=== PATIENT | male | born 1960 | race African-American/Black ===

== ENCOUNTER 2019-11-21 12:27 | Emergency (ER) | payer OTHER, MEDICAID ==
[~2019-11-21] VITALS: Ht 185.4 cm; Wt 91.0 kg
[~2019-11-21 12:27] MED LIST: BENADRYL; IBUPROFEN
[2019-11-21 12:30] VITALS: BP 120/76
[2019-11-21] MEDS ORDERED: ACETAMINOPHEN 325MG TABLET PO ONE (13:00)
== END 2019-11-21 15:00 | disposition home or self-care (01) ==
LOC: ER 12:27
DX: S80.211A Abrasion, right knee, initial encounter (principal); S90.512A Abrasion, left ankle, initial encounter; M79.642 Pain in left hand; M79.641 Pain in right hand; M32.9 Systemic lupus erythematosus, unspecified; V18.0XXA Pedal cycle driver injured in noncollision transport accident in nontraffic accident, initial encounter; Y93.89 Activity, other specified; Y92.89 Other specified places as the place of occurrence of the external cause
CPT/HCPCS: 73130; 99283

== ENCOUNTER 2020-09-11 18:43 | Emergency (ER) | payer OTHER, MEDICAID ==
[~2020-09-11] VITALS: Ht 175.3 cm; Wt 82.0 kg
[2020-09-11 18:45] VITALS: BP 124/79
[2020-09-11] MEDS ORDERED: LIDOCAINE HCL 1% 20ML VIAL (Pyxis) INJ INFIL ONE (19:00)
[2020-09-11] MEDS ORDERED: TETANUS, DIPHTHERIA, PERTUSSIS VAC/PF 0.5ML (>7YR OLD) IM ONE (19:00)
== END 2020-09-11 20:20 | disposition home or self-care (01) ==
LOC: ER 18:43
DX: S61.210A Laceration without foreign body of right index finger without damage to nail, initial encounter (principal); M32.9 Systemic lupus erythematosus, unspecified; F12.10 Cannabis abuse, uncomplicated; F17.210 Nicotine dependence, cigarettes, uncomplicated; W31.1XXA Contact with metalworking machines, initial encounter; Y93.89 Activity, other specified; Y92.018 Other place in single-family (private) house as the place of occurrence of the external cause
CPT/HCPCS: 12001; 73130; 90471; 90715; 99283; J3490

== ENCOUNTER 2021-05-28 01:20 | Emergency (ER) | payer OTHER, MEDICAID ==
[~2021-05-28] VITALS: Ht 175.3 cm; Wt 95.0 kg
[2021-05-28] MEDS ORDERED: SULF1TAB48 PO ×2 (06:00)
[2021-05-28] MEDS ORDERED: NAPR-681 PO (06:00)
[2021-05-28] MEDS ORDERED: CEPH500C2 PO (06:06)
[2021-05-28 06:14] VITALS: BP 132/76
== END 2021-05-28 06:17 | disposition home or self-care (01) ==
LOC: ER 01:20
DX: S80.812A Abrasion, left lower leg, initial encounter (principal); L03.116 Cellulitis of left lower limb; R60.9 Edema, unspecified; M32.9 Systemic lupus erythematosus, unspecified; F12.10 Cannabis abuse, uncomplicated; Z98.890 Other specified postprocedural states; X58.XXXA Exposure to other specified factors, initial encounter; Y93.89 Activity, other specified; Y92.018 Other place in single-family (private) house as the place of occurrence of the external cause
CPT/HCPCS: 93970; 99284

== ENCOUNTER 2021-09-03 07:45 | Emergency (ER) | payer OTHER, MEDICAID ==
[~2021-09-03] VITALS: Ht 182.9 cm; Wt 91.0 kg
[~2021-09-03 07:45] MED LIST changes: +CEPH500C2 PO; +NAPR-681 PO
[2021-09-03 07:52] VITALS: BP 132/77
[2021-09-03] MEDS ORDERED: ASPI-1497 MT (18:48)
== END 2021-09-03 08:21 | disposition home or self-care (01) ==
LOC: ER 08:08
DX: U07.1 COVID-19 (principal); F12.10 Cannabis abuse, uncomplicated; Z13.9 Encounter for screening, unspecified; Z98.890 Other specified postprocedural states
CPT/HCPCS: 99283

== ENCOUNTER 2021-09-03 14:14 | Emergency (ER) | payer OTHER, MEDICAID ==
[~2021-09-03] VITALS: Ht 170.2 cm; Wt 73.0 kg
[2021-09-03] MEDS ORDERED: IBUPROFEN 600MG TABLET PO ONE (14:45)
[2021-09-03 15:49] LABS: HEMATOCRIT. 33.8 % (42.0-52.0); HEMOGLOBIN. 11.1 g/dL (14.0-18.0); MEAN CORPUSCULAR HEMOGLOBIN 28.8 pg (28.0-32.0); MEAN CORPUSCULAR VOLUME 87.6 fL (80.0-94.0); RED BLOOD CELL COUNT 3.86 mill/uL (4.7-6.1); RED CELL DISTRIBUTION WIDTH 13.5 % (11.6-14.6)
[2021-09-03 15:59] LABS: CHLORIDE 103 mEq/L (98-107)
[2021-09-03 16:08] LABS: ETHANOL BLOOD < 10 mg/dL
[2021-09-03 16:20] LABS: CLARITY URINE CLEAR (CLEAR); COLOR URINE YELLOW (YELLOW); KETONES URINE TRACE (NEGATIVE); LEUKOCYTE ESTERASE URINE NEGATIVE (NEGATIVE); NITRITE URINE NEGATIVE (NEGATIVE); OCCULT BLOOD URINE NEGATIVE (NEGATIVE); PH URINE 5.5 (4.5-8.0); PROTEIN URINE TRACE (NEGATIVE); SPECIFIC GRAVITY URINE 1.025 (1.005-1.030)
[2021-09-03 16:29] LABS: MEAN PLATELET VOLUME 7.1 fl (7.4-10.4); PLATELET 291 x1000/uL (130-400)
[2021-09-03 16:31] LABS: PLATELET ESTIMATE NORMAL
[2021-09-03 16:38] LABS: *AMPHETAMINES SCREEN URINE PRESUMTIVE POSITIVE (NEGATIVE); *BARBITURATES SCREEN URINE NEGATIVE (NEGATIVE); *BENZODIAZEPINES SCREEN URINE NEGATIVE (NEGATIVE); *COCAINE SCREEN URINE NEGATIVE (NEGATIVE); CANNABINOID URINE SCREEN PRESUMTIVE POSITIVE (NEGATIVE); METHADONE URINE SCREEN NEGATIVE (NEGATIVE); OPIATES URINE SCREEN NEGATIVE (NEGATIVE); PHENCYCLIDINE URINE SCREEN PRESUMTIVE POSITIVE (NEGATIVE)
[2021-09-03] MEDS ORDERED: ASPI-1497 MT (18:48)
[2021-09-03] MEDS ORDERED: ASPIRIN 325MG EC TABLET PO ONE (19:00)
[2021-09-03 19:28] VITALS: BP 128/78
== END 2021-09-03 19:27 | disposition home or self-care (01) ==
LOC: ER 14:26
DX: R07.89 Other chest pain (principal); R94.31 Abnormal electrocardiogram [ECG] [EKG]; F12.10 Cannabis abuse, uncomplicated; F15.10 Other stimulant abuse, uncomplicated; F11.10 Opioid abuse, uncomplicated; M32.9 Systemic lupus erythematosus, unspecified
CPT/HCPCS: 36415; 71045; 80053; 80305; 80320; 81003; 84484; 85025; 93005; 99285; G0480

== ENCOUNTER 2021-10-23 11:11 | Emergency (ER) | payer OTHER, MEDICAID ==
[~2021-10-23] VITALS: Ht 175.3 cm; Wt 91.0 kg
[~2021-10-23 11:11] MED LIST changes: +ASPI-1497 MT
[2021-10-23] MEDS ORDERED: TRAMADOL HCL/ACETAMINOPHEN 37.5/325MG TABLET PO NR (15:00)
[2021-10-23 15:27] VITALS: BP 127/64
[2021-10-23] MEDS ORDERED: TRAM-529 MT (16:32)
[2021-10-23] MEDS ORDERED: FURO20TA4 MT (16:32)
[2021-10-23] MEDS ORDERED: POTA-205 MT (16:32)
== END 2021-10-23 16:37 | disposition home or self-care (01) ==
LOC: ER 11:11
DX: R60.0 Localized edema (principal); Z79.899 Other long term (current) drug therapy; M79.89 Other specified soft tissue disorders
CPT/HCPCS: 99283

== ENCOUNTER 2021-12-06 23:51 | Emergency (ER) | payer OTHER ==
[~2021-12-06] VITALS: Ht 175.3 cm; Wt 104.7 kg
[~2021-12-06 23:51] MED LIST changes: +FURO20TA4 MT; +POTA-205 MT; +TRAM-529 MT
[2021-12-07 00:05] VITALS: BP 128/80
== END 2021-12-07 03:29 | disposition left against medical advice (07) ==
LOC: ER 12-07 00:05
DX: Z53.21 Procedure and treatment not carried out due to patient leaving prior to being seen by health care provider (principal)

== ENCOUNTER 2021-12-24 22:28 | Emergency (ER) | payer OTHER, MEDICAID ==
[~2021-12-24] VITALS: Ht 175.3 cm; Wt 105.0 kg
[2021-12-25] MEDS ORDERED: ACETAMINOPHEN 325MG TABLET PO ONE (01:15)
[2021-12-25] MEDS ORDERED: BACITRACIN ZINC OINT UDPKT TOP ONE (02:00)
[2021-12-25] MEDS ORDERED: ACET-3163 PO (02:39)
[2021-12-25 03:05] VITALS: BP 150/85
== END 2021-12-25 03:12 | disposition home or self-care (01) ==
LOC: ER 22:28
DX: S80.01XA Contusion of right knee, initial encounter (principal); Z79.899 Other long term (current) drug therapy; Z79.82 Long term (current) use of aspirin; V19.9XXA Pedal cyclist (driver) (passenger) injured in unspecified traffic accident, initial encounter; Y93.89 Activity, other specified; Y92.89 Other specified places as the place of occurrence of the external cause; Y99.8 Other external cause status
CPT/HCPCS: 73080; 73562; 99284

== ENCOUNTER 2022-11-30 12:04 | Emergency (ER) | payer MEDICARE, MEDICAID ==
[~2022-11-30] VITALS: Ht 182.9 cm; Wt 100.0 kg
[~2022-11-30 12:04] MED LIST changes: +ACET-3163 PO
[2022-11-30 12:08] VITALS: O2SAT 99
[2022-11-30] MEDS ORDERED: LORAZEPAM 2MG/ML CPJ IM STA (12:22)
[2022-11-30] MEDS ORDERED: DIPHENHYDRAMINE 50MG/ML VIAL IM STA (12:22)
[2022-11-30] MEDS ORDERED: HALOPERIDOL LACTATE 5MG/ML VIAL IM STA (12:22)
[2022-11-30] MEDS ORDERED: SODIUM CHLORIDE 0.9% 1,000 ML IV ONE (12:30)
[2022-11-30 13:17] LABS: BASOPHILS % 0.6 % (0.0-2.0); EOSINOPHILS % 0.8 % (0.0-5.0); HEMATOCRIT. 37.2 % (42.0-52.0); HEMOGLOBIN. 12.4 g/dL (14.0-18.0); LYMPHOCYTES % 30.2 % (20.0-50.0); MEAN CORPUSCULAR HEMOGLOBIN 29.3 pg (28.0-32.0); MEAN CORPUSCULAR HGB CONC 33.3 g/dL (31.0-37.0); MEAN CORPUSCULAR VOLUME 88.2 fL (80.0-94.0); MEAN PLATELET VOLUME 6.8 fl (7.4-10.4); MONOCYTES % 9.4 % (2.0-8.0); PLATELET 274 x1000/uL (130-400); RED BLOOD CELL COUNT 4.22 mill/uL (4.7-6.1); RED CELL DISTRIBUTION WIDTH 15.5 % (11.6-14.6); WHITE BLOOD COUNT 5.2 x1000/uL (4.5-11.0)
[2022-11-30 14:30] LABS: CHLORIDE 110 mEq/L (98-107); INDEX HEMOLYSI 1 (1-3); INDEX ICTERIC 1 (1-4); INDEX LIPEMIC 1 (1-3); POTASSIUM 3.8 mEq/L (3.5-5.1); SODIUM 139 mEq/L (136-145)
[2022-11-30 14:43] LABS: ACETAMINOPHEN <2 ug/mL ug/mL (10-30); ALANINE AMINOTRANSFERASE 27 IU/L (13-61); ALBUMIN 3.4 g/dL (3.4-5.0); ASPARTATE AMINOTRANSFERASE 13 IU/L (15-37); BILIRUBIN TOTAL 0.2 mg/dL (0.1-1.0); CARBON DIOXIDE 29 mEq/L (21-32); CREATININE 1.2 mg/dL (0.6-1.3); ETHANOL BLOOD < 10 mg/dL (<10); GLUCOSE 134 mg/dL (70-105); UREA NITROGEN BLOOD 11 mg/dL (7-21)
[2022-11-30 15:41] LABS: CREATINE KINASE 62 IU/L (39-308)
[2022-11-30 16:18] LABS: TROPONIN I HIGH SENSITIVITY 13 ng/L (<78)
[2022-11-30 16:37] LABS: *AMPHETAMINES SCREEN URINE NEGATIVE (NEGATIVE); *BARBITURATES SCREEN URINE NEGATIVE (NEGATIVE); *BENZODIAZEPINES SCREEN URINE NEGATIVE (NEGATIVE); *COCAINE SCREEN URINE NEGATIVE (NEGATIVE); CANNABINOID URINE SCREEN PRESUMTIVE POSITIVE (NEGATIVE); ECSTASY MDMA SCREEN URINE NEGATIVE (NEGATIVE); METHADONE URINE SCREEN NEGATIVE (NEGATIVE); OPIATES URINE SCREEN NEGATIVE (NEGATIVE); PHENCYCLIDINE URINE SCREEN PRESUMTIVE POSITIVE (NEGATIVE)
[2022-11-30] MEDS ORDERED: CLON0.1T PO (20:28)
[2022-11-30] MEDS ORDERED: LOSA25TA26 PO (20:28)
[2022-11-30] MEDS ORDERED: ACET-2708 PO (20:28)
[2022-11-30] MEDS ORDERED: IBUP-2030 PO (20:28)
[2022-12-01] MEDS ORDERED: ATROPINE SULFATE 1MG/ML VIAL IV ONE ×2 (07:15)
[2022-12-01 07:59] LABS: BASOPHILS % 1.2 % (0.0-2.0); EOSINOPHILS % 0.9 % (0.0-5.0); HEMATOCRIT. 39.7 % (42.0-52.0); HEMOGLOBIN. 12.8 g/dL (14.0-18.0); LYMPHOCYTES % 33.6 % (20.0-50.0); MEAN CORPUSCULAR HEMOGLOBIN 28.3 pg (28.0-32.0); MEAN CORPUSCULAR HGB CONC 32.2 g/dL (31.0-37.0); MEAN CORPUSCULAR VOLUME 87.9 fL (80.0-94.0); MONOCYTES % 10.6 % (2.0-8.0); NEUTROPHILS % 53.7 % (40.0-76.0); PLATELET 284 x1000/uL (130-400); RED BLOOD CELL COUNT 4.52 mill/uL (4.7-6.1); RED CELL DISTRIBUTION WIDTH 15.3 % (11.6-14.6)
[2022-12-01 08:03] LABS: CHLORIDE 107 mEq/L (98-107); INDEX HEMOLYSI 3 (1-3); INDEX ICTERIC 1 (1-4); INDEX LIPEMIC 1 (1-3); SODIUM 139 mEq/L (136-145)
[2022-12-01 08:05] VITALS: BP 235/95; PULSE 47; RESP 12; TEMP 98.6
[2022-12-01 08:12] LABS: ALANINE AMINOTRANSFERASE 32 IU/L (13-61); ALBUMIN 3.4 g/dL (3.4-5.0); ASPARTATE AMINOTRANSFERASE 24 IU/L (15-37); BILIRUBIN TOTAL 0.5 mg/dL (0.1-1.0); CARBON DIOXIDE 30 mEq/L (21-32); CREATININE 1.2 mg/dL (0.6-1.3); GLUCOSE 104 mg/dL (70-105); NT PRO B-TYPE NATRIURETIC PEP 181 pg/mL (5-125); PROTEIN TOTAL 7.6 g/dL (6.0-8.3); TROPONIN I HIGH SENSITIVITY 31 ng/L (<78); UREA NITROGEN BLOOD 13 mg/dL (7-21)
== END 2022-12-01 09:06 | disposition left against medical advice (07) ==
LOC: ER 12:04
DX: T40.991A Poisoning by other psychodysleptics [hallucinogens], accidental (unintentional), initial encounter (principal); F23 Brief psychotic disorder; R00.1 Bradycardia, unspecified; F15.90 Other stimulant use, unspecified, uncomplicated; Z98.890 Other specified postprocedural states; Y92.89 Other specified places as the place of occurrence of the external cause
CPT/HCPCS: 80053 ×2; 80305; 80307; 80329; 80320; 82550; 85025 ×2; 84484 ×2; 36415 ×2; 70450; 93005 ×2; 96372; 99285; 87426; 82962; 83880; 71045; 96374; J1200; J1630; J2060; J7030; C9803; G0480

== ENCOUNTER 2024-04-14 22:31 | Emergency (ER) | payer MEDICARE, MEDICAID ==
[~2024-04-14] VITALS: Ht 175.3 cm; Wt 100.0 kg
[~2024-04-14 22:31] MED LIST changes: +ACET-2708 PO; -ACET-3163 PO; -BENADRYL; -CEPH500C2 PO; +CLON0.1T PO; -FURO20TA4 MT; +IBUP-2030 PO; -IBUPROFEN; +LOSA25TA26 PO; -NAPR-681 PO; -POTA-205 MT; -TRAM-529 MT
[2024-04-14 22:55] VITALS: BP 148/84; PULSE 89; RESP 18; TEMP 36.7; O2SAT 100
== END 2024-04-15 04:45 | disposition home or self-care (01) ==
LOC: ER 22:31
DX: S90.852A Superficial foreign body, left foot, initial encounter (principal); Z79.82 Long term (current) use of aspirin; Z79.899 Other long term (current) drug therapy; X58.XXXA Exposure to other specified factors, initial encounter; Y93.89 Activity, other specified; Y92.89 Other specified places as the place of occurrence of the external cause; Y99.8 Other external cause status
CPT/HCPCS: 73630; 99284

== ENCOUNTER 2024-05-05 18:16 | Emergency (ER) | payer MEDICARE, MEDICAID ==
[~2024-05-05] VITALS: Ht 177.8 cm; Wt 91.0 kg
[2024-05-05 18:21] VITALS: BP 157/82; PULSE 88; RESP 16; TEMP 37; O2SAT 99
[2024-05-05] MEDS: LIDOCAINE HCL/PF 1% 10 MG/ML 5ML VIAL INFIL ONE (20:34)
[2024-05-05] MEDS: TETANUS, DIPHTHERIA, PERTUSSIS VAC/PF 0.5ML (>10YR OLD) IM ONE (20:42)
[2024-05-05] MEDS ORDERED: BO1 TP (21:25)
[2024-05-05] MEDS ORDERED: ACET-2708 MT (21:25)
== END 2024-05-06 00:39 | disposition home or self-care (01) ==
LOC: ER 18:16
DX: S91.312A Laceration without foreign body, left foot, initial encounter (principal); F16.20 Hallucinogen dependence, uncomplicated; Z79.899 Other long term (current) drug therapy; Z79.82 Long term (current) use of aspirin; W22.8XXA Striking against or struck by other objects, initial encounter; Y93.89 Activity, other specified; Y92.89 Other specified places as the place of occurrence of the external cause; Y99.8 Other external cause status
CPT/HCPCS: 99283; 73630; 90715; 12004; 90471; J2003

== ENCOUNTER 2024-05-08 09:26 | Emergency (ER) | payer MEDICAID, MEDICARE, OTHER ==
[~2024-05-08] VITALS: Ht 175.3 cm; Wt 80.0 kg
[~2024-05-08 09:26] MED LIST changes: +ACET-2708 MT; +BO1 TP
[2024-05-08 09:28] VITALS: O2SAT 100
[2024-05-08] MEDS: LORAZEPAM 2MG/ML INJ IM ONE (10:00)
[2024-05-08 10:16] LABS: BASOPHILS % 0.6 % (0.0-2.0); EOSINOPHILS % 1.7 % (0.0-5.0); HEMATOCRIT. 38.4 % (42.0-52.0); HEMOGLOBIN. 12.3 g/dL (14.0-18.0); LYMPHOCYTES % 21.2 % (20.0-50.0); MEAN CORPUSCULAR HEMOGLOBIN 28.7 pg (28.0-32.0); MEAN CORPUSCULAR HGB CONC 32.2 g/dL (31.0-37.0); MEAN CORPUSCULAR VOLUME 89.1 fL (80.0-94.0); MEAN PLATELET VOLUME 7.1 fl (7.4-10.4); MONOCYTES % 10.3 % (2.0-8.0); NEUTROPHILS % 66.2 % (40.0-76.0); PLATELET 269 x1000/uL (130-400); WHITE BLOOD COUNT 5.8 x1000/uL (4.5-11.0)
[2024-05-08 10:29] LABS: CHLORIDE 109 mEq/L (98-107); POTASSIUM 4.1 mEq/L (3.5-5.1); SODIUM 145 mEq/L (136-145)
[2024-05-08 10:30] LABS: CALCIUM 9.4 mg/dL (8.7-10.4); CARBON DIOXIDE 24 mEq/L (21-32)
[2024-05-08 10:35] LABS: CREATININE 1.9 mg/dL (0.6-1.3); GLUCOSE 168 mg/dL (70-105); UREA NITROGEN BLOOD 27 mg/dL (9-23)
[2024-05-08 10:37] LABS: ACETAMINOPHEN < 2 ug/mL (10-30)
[2024-05-08 10:39] LABS: ETHANOL BLOOD < 10 mg/dL (<10)
[2024-05-08] MEDS: HALOPERIDOL LACTATE 5MG/ML VIAL IM ONE (11:23)
[2024-05-08 11:31] LABS: CLARITY URINE CLEAR (CLEAR); COLOR URINE YELLOW (YELLOW); GLUCOSE URINE NEGATIVE (NEGATIVE); KETONES URINE NEGATIVE (NEGATIVE); LEUKOCYTE ESTERASE URINE NEGATIVE (NEGATIVE); NITRITE URINE NEGATIVE (NEGATIVE); OCCULT BLOOD URINE 1+ (NEGATIVE); PH URINE 5.5 (4.5-8.0); PROTEIN URINE 2+ (NEGATIVE); SPECIFIC GRAVITY URINE 1.032 (1.005-1.030)
[2024-05-08 11:57] LABS: *AMPHETAMINES SCREEN URINE PRESUMPTIVE POSITIVE (NEGATIVE); *BARBITURATES SCREEN URINE NEGATIVE (NEGATIVE); *BENZODIAZEPINES SCREEN URINE NEGATIVE (NEGATIVE); *COCAINE SCREEN URINE PRESUMPTIVE POSITIVE (NEGATIVE); METHADONE URINE SCREEN NEGATIVE (NEGATIVE); OPIATES URINE SCREEN PRESUMPTIVE POSITIVE (NEGATIVE)
[2024-05-08 11:58] LABS: CANNABINOID URINE SCREEN NEGATIVE (NEGATIVE); ECSTASY MDMA SCREEN URINE CONF.TEST INDICATED (NEGATIVE); PHENCYCLIDINE URINE SCREEN PRESUMTIVE POSITIVE (NEGATIVE)
[2024-05-08 12:13] LABS: BACTERIA URINE 1+; SQUAMOUS EPITHELIAL CELL URINE NONE SEEN /lpf (RARE/1+); WBC URINE 0-2 /hpf (0-2); YEAST URINE NONE SEEN
[2024-05-08] MEDS: SODIUM CHLORIDE 0.9% 1,000 ML IV ONE (12:26)
[2024-05-08 12:33] LABS: CREATINE KINASE 252 IU/L (46-171)
[2024-05-08 13:46] VITALS: BP 138/80; PULSE 68; RESP 19; TEMP 36.6; O2SAT 99
== END 2024-05-08 13:47 ==
LOC: EDBD 09:26 → ER 09:26
DX: R46.2 Strange and inexplicable behavior (principal); T50.905A Adverse effect of unspecified drugs, medicaments and biological substances, initial encounter; Z79.899 Other long term (current) drug therapy; Z65.3 Problems related to other legal circumstances; Z79.82 Long term (current) use of aspirin; Y92.89 Other specified places as the place of occurrence of the external cause
CPT/HCPCS: 80305; 80048; 81003; 80307; 80329; 80320; 82550; 85025; 36415; 96360; 99283; J1630; J2060; J7030; G0480

== ENCOUNTER 2024-07-10 15:50 | Emergency (ER) | payer OTHER ==
[~2024-07-10] VITALS: Ht 175.3 cm; Wt 100.0 kg
[~2024-07-10 15:50] MED LIST changes: +AMLO10TA80 MT; -BO1 TP
[2024-07-10 16:03] VITALS: O2SAT 96
[2024-07-10 20:52] LABS: CLARITY URINE CLEAR (CLEAR); COLOR URINE YELLOW (YELLOW); GLUCOSE URINE NEGATIVE (NEGATIVE); KETONES URINE TRACE (NEGATIVE); LEUKOCYTE ESTERASE URINE 2+ (NEGATIVE); NITRITE URINE NEGATIVE (NEGATIVE); OCCULT BLOOD URINE NEGATIVE (NEGATIVE); PH URINE 5.5 (4.5-8.0); PROTEIN URINE 1+ (NEGATIVE); SPECIFIC GRAVITY URINE 1.029 (1.005-1.030)
[2024-07-10 21:10] LABS: *AMPHETAMINES SCREEN URINE PRESUMPTIVE POSITIVE (NEGATIVE); *BENZODIAZEPINES SCREEN URINE NEGATIVE (NEGATIVE)
[2024-07-10 21:11] LABS: *BARBITURATES SCREEN URINE NEGATIVE (NEGATIVE); *COCAINE SCREEN URINE NEGATIVE (NEGATIVE); BACTERIA URINE 2+; CANNABINOID URINE SCREEN PRESUMPTIVE POSITIVE (NEGATIVE); ECSTASY MDMA SCREEN URINE CONF.TEST INDICATED (NEGATIVE); METHADONE URINE SCREEN NEGATIVE (NEGATIVE); OPIATES URINE SCREEN NEGATIVE (NEGATIVE); PHENCYCLIDINE URINE SCREEN PRESUMTIVE POSITIVE (NEGATIVE); RBC URINE 0-2 /hpf (0-2); SQUAMOUS EPITHELIAL CELL URINE FEW /lpf (RARE/1+)
[2024-07-10] MEDS ORDERED: CEFP200T13 MT (21:16)
[2024-07-10] MEDS: LIDOCAINE HCL 1% 20ML VIAL INFIL ONE (21:36)
[2024-07-10] MEDS: CEFTRIAXONE SODIUM 1G VIAL IM ONE (21:36)
[2024-07-10 21:53] VITALS: BP 165/77; PULSE 75; RESP 12; O2SAT 98
[2024-07-13 04:12] LABS: CHLAMYDIA TRACHOMATIS NAA Negative (Negative); NEISSERIA GONORRHOEAE NAA Negative (Negative)
== END 2024-07-10 21:56 | disposition home or self-care (01) ==
LOC: ER 15:50
DX: N39.0 Urinary tract infection, site not specified (principal); F19.10 Other psychoactive substance abuse, uncomplicated; Z79.82 Long term (current) use of aspirin; Z79.899 Other long term (current) drug therapy
CPT/HCPCS: 99285; 93976; 87491; 87591; 80305; 81003; 76870; 96372; J0696; J3490

== ENCOUNTER 2024-08-12 14:34 | Emergency (ER) | payer OTHER ==
[~2024-08-12] VITALS: Ht 175.3 cm; Wt 105.0 kg
[~2024-08-12 14:34] MED LIST changes: +CEFP200T13 MT
[2024-08-12 14:47] VITALS: O2SAT 100
[2024-08-12] MEDS ORDERED: AMOX1TAB16 MT (15:30)
[2024-08-12] MEDS ORDERED: TETANUS, DIPHTHERIA, PERTUSSIS VAC/PF 0.5ML (>10YR OLD) IM ONE (15:30)
[2024-08-12] MEDS ORDERED: BO1 TP (15:30)
[2024-08-12 15:44] VITALS: BP 129/76; PULSE 83; RESP 18; TEMP 37.1; O2SAT 100
== END 2024-08-12 15:45 | disposition home or self-care (01) ==
LOC: ER 14:34
DX: S81.832A Puncture wound without foreign body, left lower leg, initial encounter (principal); M32.9 Systemic lupus erythematosus, unspecified; F16.10 Hallucinogen abuse, uncomplicated; F19.10 Other psychoactive substance abuse, uncomplicated; Z98.890 Other specified postprocedural states; Z79.82 Long term (current) use of aspirin; Z79.899 Other long term (current) drug therapy; W53.11XA Bitten by rat, initial encounter; Y93.89 Activity, other specified; Y92.89 Other specified places as the place of occurrence of the external cause; Y99.8 Other external cause status
CPT/HCPCS: 99283

== ENCOUNTER 2024-11-05 20:56 | Emergency (ER) | payer OTHER, MEDICAID ==
[~2024-11-05] VITALS: Ht 175.3 cm; Wt 104.2 kg
[~2024-11-05 20:56] MED LIST changes: +AMOX1TAB16 MT; +BO1 TP
[2024-11-05 20:59] VITALS: O2SAT 99
[2024-11-05 21:14] VITALS: TEMP 36.6
[2024-11-05] MEDS ORDERED: GUAI-450 MT (22:26)
[2024-11-05] MEDS ORDERED: BENZ100C86 MT (22:26)
[2024-11-05] MEDS ORDERED: DEXT30SU17 MT (22:30)
[2024-11-05 22:39] VITALS: BP 147/98; PULSE 60; RESP 20; O2SAT 99
== END 2024-11-05 22:42 | disposition home or self-care (01) ==
LOC: ER 20:56
DX: J06.9 Acute upper respiratory infection, unspecified (principal); B97.89 Other viral agents as the cause of diseases classified elsewhere; Z98.890 Other specified postprocedural states; Z79.899 Other long term (current) drug therapy; Z79.82 Long term (current) use of aspirin
CPT/HCPCS: 71045; 99283

== ENCOUNTER 2024-11-08 08:04 | Emergency (ER) | payer OTHER, MEDICAID ==
[~2024-11-08] VITALS: Ht 177.8 cm; Wt 99.0 kg
[~2024-11-08 08:04] MED LIST changes: +BENZ100C86 MT; +DEXT30SU17 MT
[2024-11-08 08:18] VITALS: O2SAT 97
[2024-11-08] MEDS ORDERED: BENZ100C86 MT (08:43)
[2024-11-08] MEDS ORDERED: DEXT30SU17 MT (08:43)
[2024-11-08 08:58] VITALS: BP 149/81; PULSE 60; RESP 18; TEMP 36.7; O2SAT 97
== END 2024-11-08 08:59 | disposition home or self-care (01) ==
LOC: ER 08:04
DX: R05.9 Cough, unspecified (principal); Z76.0 Encounter for issue of repeat prescription; Z79.82 Long term (current) use of aspirin; Z79.899 Other long term (current) drug therapy
CPT/HCPCS: 99281; 99282